=== PATIENT | female | born 1995 | race Caucasian/White ===

== ENCOUNTER 2021-01-03 19:47 | Emergency (ER) | payer OTHER, SELFPAY ==
[2021-01-03 19:57] VITALS: BP 109/59; PULSE 68; RESP 14; TEMP 36.9; O2SAT 100; BMI 20.2
--- NOTE | 2021-01-03 20:11 | DI.RAD.S_ITS ---
PROCEDURE: XR HAND RT MIN 3V INDICATIONS: Dog bite TECHNIQUE: 3 views of the hand(s) acquired. COMPARISON: None. FINDINGS: Bones: No fractures or dislocations. Carpal bones are normally aligned. No suspicious bony lesions. Soft tissues: No suspicious soft tissue calcifications. IMPRESSION: No fracture or foreign body found. Dictated by: Nolberto Garcia M.D. on 01/03/2021 at 20:39 Approved by: Nolberto Garcia M.D. on 01/03/2021 at 20:39
--- NOTE | 2021-01-03 20:16 | ED_ITS ---
HPI - Animal Bite General Chief Complaint: Animal Bite Stated Complaint: dog bite Time Seen by Provider: 01/03/21 19:59 Source: patient Mode of arrival: Ambulatory Limitations: no limitations History of Present Illness HPI narrative: Patient is a otherwise healthy 25-year-old female here for evaluation of a dog bite to her right hand. She states that her dog and another one got into a fight and she was trying to break it up she got bit in the right hand. Both dogs were up-to-date on immunizations the patient is up-to-date on immunizations. Related Data Previous Rx's Medication Instructions Recorded amoxicillin-pot clavulanate 1 tab PO BID 7 Days #14 tab 01/03/21 [Augmentin] Allergies Allergy/AdvReac Type Severity Reaction Status Date / Time No Known Drug Allergies Allergy Verified 01/03/21 19:59 Review of Systems Musculoskeletal Musculoskeletal: Denies tingling Comments: Pain over the 1st and 2nd knuckles of the right hand Integumentary/Breasts Comments: Dog bite wounds to the right hand Neurologic Neurologic: Denies tingling Hematologic/Lymphatic On Anticoagulants: No Allergic/Immunologic Allergic/Immunologic: Reports system reviewed and no additional complaints, except as documented Patient History Medical History Healthy adult Social History Smoking Status: Never smoker Smoking Status: Never smoker alcohol intake frequency: 0-2 drinks per day Substance Use Type: does not use Exam Initial Vital Signs Initial Vital Signs: Vital Signs Temperature 98.4 F 01/03/21 19:57 Pulse Rate 68 01/03/21 19:57 Respiratory Rate 14 01/03/21 19:57 Blood Pressure 109/59 L 01/03/21 19:57 Pulse Oximetry 100 01/03/21 19:57 Const General: cooperative and comfortable Limitations: mental status not altered HENVT Head: normal to inspection and normocephalic Cardio Pulses: radial pulses present on the right Skin Other: Patient with a 0.25 cm laceration just proximal to the MCP joint of the index finger on the dorsum of the right hand. She has two 0.5 cm skin abrasions just proximal to the MCP joint of the middle finger on the dorsum of the right hand and then a small abrasion between the MCP and PIP joint of the ring finger. Neuro Sensory Exam: no sensory deficits noted Extrem General: capillary refill normal Other: Swelling over the MCP joint of the index finger and ring finger of the right hand Course Orders Ordered: ED Orders 01/03/21 20:11 XR hand RT min 3V Stat Discontinued Medications Amoxicillin/Clavulanate Potassium (Amoxicillin/Clav 875/125 Mg) 1 tab PO NOW ONE Stop: 01/03/21 20:18 Last Admin: 01/03/21 20:22 Dose: 1 tab Documented by: RERE Vital Signs Vital signs: Vital Signs - 8 hr 01/03/21 19:57 Temperature 98.4 F Pulse Rate 68 Respiratory Rate 14 Blood Pressure 109/59 L Pulse Oximetry 100 [facility] - Animal Bite Imaging Data Extremity x-ray #1: Radiologist's Impression: [address] [id number] ReportSigned Patient: Jasmyn Carrera [facility]#: [id number]: 1995Acct:[id number]/Sex: 25 / FDate of Service: 01/03/21Loc: EDAccession Number: [id number] Procedure: XR hand RT min 3V Ordering Provider: Jorge Alberto Duron D.O. PROCEDURE: XR HAND RT MIN 3V INDICATIONS: Dog bite TECHNIQUE: 3 views of the hand(s) acquired. COMPARISON: None. FINDINGS: Bones: No fractures or dislocations. Carpal bones are normally aligned. No suspicious bony lesions. Soft tissues: No suspicious soft tissue calcifications. IMPRESSION: No fracture or foreign body found. Dictated by: Nolberto Garcia M.D. on 01/03/2021 at 20:39 Approved by: Nolberto Garcia M.D. on 01/03/2021 at 20:39 [facility] Narrative Medical decision making narrative: The x-ray shows no signs of fracture. I did discuss dog bites with the patient. We will place her on antibiotics. She was given return precautions and follow-up instructions. She expressed understanding and agreement. Discharge Plan Departure Patient Disposition: Home Clinical Impression: Dog bite Instructions: DI for Dog Bite Activity Restrictions/Additional Instructions: You can wash your hands like normal and you soap and water. Your next dose of antibiotics will be tomorrow morning. They were sent to [facility]. Return to the emergency department for any new or worsening symptoms Prescriptions: New amoxicillin-pot clavulanate [Augmentin] 875-125 mg tablet 1 tab PO BID 7 Days Qty: 14 RF: 0
[2021-01-03] MEDS: AMOXICILLIN/CLAV 875/125 MG 1 TAB PO (20:22)
== END 2021-01-03 21:04 | disposition home or self-care (01) ==
PROVIDERS: Emergency Provider Emergency Medicine
DX: S61.451A Open bite of right hand, initial encounter (principal); W54.0XXA Bitten by dog, initial encounter
CPT/HCPCS: 73130; 99283